=== PATIENT | female | born 1930 | race Caucasian/White ===

== ENCOUNTER 2017-01-24 12:11 | Inpatient (IN) | payer MEDICARE, OTHER ==
[~2017-01-24] VITALS: Ht 162.6 cm; Wt 66.8 kg
--- NOTE | ~2017-01-24 | ECH ---
Transthoracic Echocardiography Report (TTE) Demographics Patient Name HAIR STREETER Date of Study 01/25/2017 Patient Number [id number] Visit Number [id number] Date of 1930 Room Number 428 Accession Number [id number] Gender Female Age 86 year(s) Referring Rosenda Catalan MD Network Systems Engineer Amparo Dela Cruz [facility] Physician Juan Stephenson MD Physician Interpreting Seble Louise [employer] Journeyman Physician MD Supervising Ordering Physician Juan Ayers MD/P Nurse Stress Residential Manager Conclusions Summary Technically adequate exam. The estimated left ventricular ejection fraction is 60-65% in underlying atrial fibrillation. Aortic sclerosis without significant stenosis. Mildly dilated right ventricle with normal systolic function. The left atrium is severely dilated by LA volume index measurement. The right atrium is moderate to severely dilated. Mild-moderate tricuspid regurgitation by color Doppler. There is moderate pulmonary hypertension. The pulmonary pressure (RVSP) is 51 mmHg. The ascending aorta appears mildly dilated. The maximum diameter measures 3.6 cm. Procedure Type of Study TTE procedure:Echo Complete SF. Procedure Date Date: 01/25/2017 Start: 10:39 AM Technical Quality: Adequate visualization Indications:Congestive heart failure, Hypertension and Atrial fibrillation. Appropriate Use Criteria: 9 Height: 64 inches Weight: 149 pounds BSA: 1.73 m Rhythm: Atrial fibrillation HR: 68 bpm BP: 122/82 mmHg M-Mode/2D Measurements LV Diastolic Dimension: 4.31 cm LV Systolic Dimension: 3.84 cm LV Septum Diastolic: 0.9 cm LV PW Diastolic: 0.95 cm AO Root Dimension: 2.88 cm Cardiac Output: 4.17 l/min LA Dimension: 5.65 cm Cardiac Index: 2.41 l/min*m RV Diastolic Dimension: 3.4 cm LA volume index: 56 ml/m LVOT: 1.82 cm LVOT VTI: 23.57 cm RV Base: 4.6 cm LV Stroke volume: 61.29 ml RV Mid: 3.6 cm LV Stroke volume index: 35.43 ml/m RV Length: 7.1 cm TAPSE: 2.1 cm Doppler Measurements AV Peak Velocity: 1.6 m/s MV Peak E-Wave: 1.14 m/s AV Peak Gradient: 10.24 mmHg MV Peak A-Wave: 0.92 m/s AV Mean Gradient: 5.89 mmHg MV E/A Ratio: 1.23 LVOT Peak Velocity: 1.06 m/s MV P1/2t: 50.3 msec AV Area (Continuity):1.74 cm MV Deceleration Time: 173.5 msec TR Velocity:3.4 m/s MV Area (PHT): 4.37 cm TR Gradient:46.24 mmHg PV Peak Velocity: 0.89 m/s Estimated RAP:5 mmHg PV Peak Gradient: 3.15 mmHg Estimated RVSP: 51 mmHg Estimated PASP: 51.24 mmHg RA Area: 24.01 cm Findings Left Ventricle The left ventricle is normal in size . Diastolic function indeterminate due to patient's arrhythmia. Right Ventricle Mildly dilated right ventricle with normal systolic function. Left Atrium The left atrium is severely dilated by LA volume index measurement. Right Atrium The right atrium is moderate to severely dilated. Mitral Valve Mild mitral annular calcification. Mild mitral regurgitation by color Doppler. Aortic Valve The aortic valve is mildly sclerotic with a mean gradient of 5.9mmHg. There is no aortic regurgitation by color Doppler. Tricuspid Valve Normal appearing tricuspid valve. Mild-moderate tricuspid regurgitation by color Doppler. There is moderate pulmonary hypertension. The pulmonary pressure (RVSP) is 51 mmHg. Pulmonic Valve Normal pulmonic valve structure and function. Pericardial Effusion No evidence of pericardial effusion. Miscellaneous The ascending aorta appears mildly dilated. The maximum diameter measures 3.6 cm. Pleural Effusion No evidence of pleural effusion. Contractility Score LV regional wall motion:(0-Non visualized 1-Normal 2-Hypokinesis 3-Akinesis 4-Dyskinesis 5-Aneurysm) Signature
[~2017-01-24 12:11] MED LIST: CALTRATE-600 W600 MG PO; COREG DPS12.5 MG PO; DAILY MULTIPLE1 EAC1 PO; DULERA 200/58.8 GM IH; FEOSOL-DPS325 MG PO; FLEXERIL DPS5 MG PO; FLONASE 0.05% D16 GM NS; FORTICAL NASAL3.7 ML NS; HYDREA DPS500 MG PO; IMODIUM A-1 MG/7.5 M PO; LASIX DPS40 MG PO; LEVAQUIN DPS500 MG PO; MUCINEX600 MG PO; NORVASC5 MG PO; PEPCID DPS20 MG PO; PHAZYME180 MG PO; PLAVIX75 MG PO; PRILOSEC DPS20 MG PO; SENOKOT-S TABL1 EACH PO; SYNTHROID DP0.025 MG PO; TYLENOL EXTRA500 M1 PO; TYLENOL PM EX-1 EACH PO; VITAMIN B-12 SQ; VITAMIN B-12500 MCG PO; VITAMIN D31000 UNIT PO; [UNRECOGNIZED DRUG - OTHER] PO
--- NOTE | 2017-01-29 12:55 | HP ---
ADMIT: 01/24/2017 RM/LOC: 428 [facility] MR#: [id number] [address] [address] [address] [place] [address] History and Physical SEX: F AGE: 86 : 1930 DATE OF SERVICE: CHIEF COMPLAINT: Shortness of breath. HISTORY OF PRESENT ILLNESS: The patient is a very pleasant, 86-year-old, female. She has a past medical history of /essential thrombocytopenia/interstitial pulmonary fibrosis/chronic hypoxic respiratory failure, who presents to [facility] Emergency Room today with complaints of shortness of breath worsening over the last 3 days. Along with this, she has been dyspneic on exertion. She denies any chest pain. She does notice an increase in weight and increase in ankle swelling, thinks she has gained at least 3 to 4 pounds. She denies any nausea. No vomiting. No fevers or chills have been noted. No bowel or bladder complaints has been noted. She has been taking all of her medications as directed. In the emergency room, she was found to have increasing oxygen requirements, which she notes she has turned her oxygen up to over the last several days. Her chest x-ray is consistent with some pulmonary edema on top of her chronic pulmonary fibrosis, and she is admitted for further evaluation and treatment. Right now, the patient notes she does feel a little bit improved since arriving. PAST MEDICAL HISTORY: 1. History of rectal prolapse status post laparoscopic rectopexy in 2016. 2. Myelodysplastic syndrome. 3. Essential thrombocytopenia. 4. Anemia of iron deficiency. 5. Vitamin B12 deficiency. 6. Hypothyroidism. 7. Hypertension. 8. Chronic kidney disease. 9. Hyperlipidemia. 10.History of CVA. 11.History of peptic ulcer disease/gastrointestinal bleed. 12.Interstitial lung disease/IPF chronically on at least 3 L of oxygen, diagnosed in 2015. 13.History of prior esophagitis. 14.Status post cholecystectomy. 15.Status post prior bone marrow biopsy. 16.History of chronic diastolic heart failure. 17.Osteoporosis. 18.Dilation and curettage. HOME MEDICATIONS: Include: 1. Multivitamin. 2. Tylenol. 3. Miacalcin. 4. Phazyme. 5. Ferrous sulfate. 6. Norvasc. ADMIT: 01/24/2017 RM/LOC: 428 [facility] MR#: [id number] [address] [address] [address] [place] [address] History and Physical SEX: F AGE: 86 : 1930 7. Synthroid. 8. Lasix. 9. Flonase. 10.Allopurinol. 11.Senokot. 12.Tylenol. 13.Vitamin D. 14.Coreg. 15.Cyclobenzaprine. 16.Tums. 17.Vitamin B12. 18.Omeprazole. ALLERGIES: NONSTEROIDAL ANTI-INFLAMMATORY DRUGS WELL CODEINE. FAMILY HISTORY: Noncontributory. SOCIAL HISTORY: She has never been a smoker. She is retired, previously worked at [employer], lives independently. REVIEW OF SYSTEMS: Noted above. All other systems are reviewed and are negative. PHYSICAL EXAMINATION: VITAL SIGNS: 96.5, 73, 22, 155/76, she is saturating about 90% on 5 L by nasal cannula. GENERAL: This is an elderly female. She is in no apparent distress. She is awake. She is alert. She is oriented x3, cooperative with examiner. HEENT: Normocephalic and atraumatic. Mucous membranes are moist. NECK: Supple. LUNGS: She has rales really throughout all irby, little diminished at the bases. HEART: Regular. ABDOMEN: Soft, nontender, nondistended. Positive bowel sounds throughout. EXTREMITIES: Lower extremities, she has good pulses that are palpable, but she has edema in feet, ankles, calves really up to the knee, at least 2+. NEUROLOGIC: Her cranial nerves are intact. There are no focal deficits are noted. LABORATORY DATA: Her lab work shows a hemoglobin of 8.2, a white count of 16.8, and 308,000 platelets. Sodium 139, potassium 4.2, BUN is 29, and creatinine 1.1. Her bicarb is 29, AST 46, ALT 23, alkaline phosphatase 154, total bilirubin is a little elevated at 1.9. Her urinalysis really is within normal limits. Chest x-ray, bilateral interstitial infiltrates that appear much more prominent than her last chest film that was just done in September really very suspicious for pulmonary edema, question small right pleural effusion. I do not notice any alicia consolidations. Brain natriuretic peptide was 13,150. ADMIT: 01/24/2017 RM/LOC: 428 [facility] MR#: [id number] [address] [place] [id number] [address] [facility] [place] [address] History and Physical SEX: F AGE: 86 : 1930 ASSESSMENT AND PLAN: 1. Dyspnea. 2. Worsening/acute on chronic hypoxic respiratory failure. 3. History of diastolic heart failure. 4. Idiopathic pulmonary fibrosis/interstitial lung disease. 5. Leukocytosis/myelodysplastic syndrome with essential thrombocythemia. 6. Hypertension. 7. History of chronic kidney disease. At this time, I really believe this is mostly heart failure. I have covered her with a little bit of Levaquin just given the high risk of infection in people who do have myelodysplastic syndrome and then on top of that her interstitial lung disease, but I really do believe most of this is failure. Right now, she has been given some Lasix downstairs, and probably, we will actually re- dose her with a little bit later. I do not see an echo report for over a year and half. We will get her started on the remainder of her home medications and follow her closely as an inpatient. The patient is a DNR at this point. Armen Martinez MD/ katy JOB #: [id number] CC: Armen Martinez, Attending Physician Naa Dennison, Family Physician
[2017-01-31] MEDS ORDERED: PHAZYME180 MG PO (12:53)
[2017-01-31] MEDS ORDERED: ZYLOPRIM100 MG PO (12:54)
[2017-01-31] MEDS ORDERED: TUMS DPS500 MG PO (12:56)
[2017-01-31] MEDS ORDERED: MAG-OX400 MG PO (12:57)
[2017-01-31] MEDS ORDERED: CARDIZEM CD180 MG PO (12:58)
[2017-01-31] MEDS ORDERED: OCEAN NASAL MIS45 ML NS (12:59)
--- NOTE | 2017-02-05 17:41 | DS ---
ADMIT: 01/24/2017 RM/LOC: 428 [facility] MR#: [id number] [address] [address] [address] [place] [address] Discharge Summary SEX: F AGE: 86 : 1930 ADMISSION DATE: 01/24/2017 DISCHARGE DATE: 01/29/2017 DISCHARGE DIAGNOSES: 1. Acute on chronic diastolic heart failure. 2. New onset atrial fibrillation with rapid ventricular response, paroxysmal converted to sinus rhythm. 3. Myelodysplastic syndrome with significant anemia, status post packed red blood cell transfusion. 4. Interstitial lung disease. 5. Chronic hypoxic respiratory failure. 6. Hypertension. 7. Chronic kidney disease. CONSULTATIONS: Cardiology. PROCEDURES: None. REASON FOR ADMISSION: The patient is a very pleasant, 86-year-old female who presented to the [facility] emergency room on the day of admission with complaints of increased shortness of breath and dyspnea on exertion. She had noted some weight gain and she was admitted for further evaluation and treatment. For complete details, please see H and P dictated on the day of admission. HOSPITAL COURSE: At the time of admission, the patient was placed in a telemetry bed. She was clearly noted to be clinically in heart failure. She was given diuretics and she was monitored closely on telemetry. She diuresed well. She was then noted to go into atrial fibrillation with RVR and she was rate controlled with diltiazem. Cardiology consulted. She underwent an echocardiogram. This was overall thought to be paroxysmal in nature. She converted to sinus rhythm. She diuresed nicely with great improvement with good diuresis. Her edema greatly improved. She did well in sinus rhythm as well. She had no recurrences of atrial fibrillation. She was seen by PT and OT. She refused any home health care and did quite well. Refused home health care as she pretty much lives with her son. She was changed from IV diuretics ADMIT: 01/24/2017 RM/LOC: 428 [facility] MR#: [id number] [facility] [address] [address] [address] [place] [address] Discharge Summary SEX: F AGE: 86 : 1930 to oral diuretics. For her myelodysplastic syndrome she had been receiving blood every 4-6 weeks and her hemoglobin did drop to 6.9 during her hospitalization and she was transfused with 1 unit of packed red cells bringing her hemoglobin up to the high 8 range and patient felt much better. She ambulated and ate, did very well and was thought to be ready for discharge home on 01/29. Discharge diet is a 2 g sodium cardiac diet as tolerated. Discharge activity is as tolerated. Discharge medications are per discharge medication sheet. Her Lasix was increased to 40 mg daily. FOLLOWUP: She will follow up with [facility] as well as well as Naa Cazares both within the next 7-10 days. She will call us with any other questions or concerns. Armen Martinez MD/ kourtney JOB #: [id number] CC: Armen Martinez MD, Attending Physician Naa Benavidez APRN, Family Physician
--- NOTE | 2017-02-16 21:31 | ER ---
ADMIT: 01/24/2017 RM/LOC: 428 [facility] MR#: [id number] [address] [address] [address] [place] [address] Emergency Room Report SEX: F AGE: 86 : 1930 DATE: 01/24/2017 HISTORY OF PRESENT ILLNESS: An 86-year-old female, comes to the Emergency Department with several days worth of increasing shortness of breath. She has a moist sounding cough, but denies coughing anything up. Denies orthopnea or PND. Has had no pain anywhere. Just slowly increasing shortness of breath. She is normally on 3 L of oxygen at home, she is now up to 5 L to maintain her saturations in the 90s. PAST MEDICAL HISTORY: Significant for hypertension, lung disease which is apparently an interstitial fibrosis. She has chronic renal failure, myelodysplastic syndrome. SOCIAL HISTORY: Does not smoke or drink. PHYSICAL EXAMINATION: GENERAL: Reveals an elderly lady, who has mild amount of distress. She is alert and oriented. LUNGS: She has rhonchi bilaterally. Prolonged expirations and decreased air movement. CARDIOVASCULAR: Regular rate and rhythm. No murmurs or rubs. ABDOMEN: Soft. EXTREMITIES: Significant for bipedal edema, 1+ to 2. SKIN: Pallorous. LOW ALTITUDE AIR DEFENSE GUNNER: With no focal findings. LABORATORY AND X-RAY DATA: Chest x-ray shows interstitial changes and vascular congestion. White count is 16.8, hemoglobin 8.2. BUN 29. Glucose 106. UA is normal. DIAGNOSES: The patient is being admitted with exacerbation of congestive heart failure and pneumonia. Delmar Doll MD/ katy JOB #: [id number] CC: Armen Martinez MD, Attending Physician Naa Cazares APRN, Family Physician
--- NOTE | 2017-03-08 15:03 | CO ---
ADMIT: 01/24/2017 RM/LOC: 428 [facility] MR#: [id number] [address] [address] [address] [place] [address] Consultation SEX: F AGE: 86 : 1930 DATE OF CONSULTATION: 01/25/2017 ATTENDING PHYSICIAN: Armen Martinez CONSULTING PHYSICIAN: Albino Herzog MD REASON FOR CONSULTATION: New onset atrial fibrillation. HISTORY OF PRESENT ILLNESS: The patient is a pleasant 86-year-old female with no known history of coronary artery disease. She does have interstitial lung disease and is on chronic oxygen at home. She states she has noticed over the last three days, she has had increased oxygen requirements and shortness of breath with exertion, also lower extremity edema and weight gain of approximately 4 pounds. She weighs herself faithfully everyday. She does have some lower extremity edema off and on in the past. She denies any chest pain, tightness, or heaviness, or any palpitations. She was found to be in atrial fibrillation with rapid ventricular response upon admission to the emergency room. This is a new diagnosis for her. She denies any orthopnea or paroxysmal nocturnal dyspnea. She denies any palpitations, fainting, dizziness, or lightheadedness. SOCIAL HISTORY: She does not have a history of tobacco abuse. Does not use any alcohol. Does not have a history of drug use or abuse. She does use caffeine. She worked at the [employer] for 18 years and she is retired from there. She now lives with her son. She is twice, once 20 years ago and once 40 years ago. PAST MEDICAL HISTORY: 1. She has a history of a cholecystectomy and also surgery on a prolapsed bowel. 2. Interstitial lung disease. 3. Hypertension. 4. History of CVA x3 per her report. 5. Cataracts, which have been removed. 6. Corrective lenses. 7. GERD. 8. Hiatal hernia. 9. Hypothyroidism. 10.Myelodysplastic syndrome for which she follows with Oncology and gets a transfusion every month per her report. REVIEW OF SYSTEMS: GENERAL: Denies fatigue, fever, chills, sweats, or rash. She has had a weight gain of approximately 4 pounds in the last three days. EYES: Denies glaucoma. She wears corrective lenses and has had cataracts removed. ENT: Denies hearing loss or problems with nose, mouth or throat. PULMONARY: Denies cough, sputum production, asthma, or bronchitis. Denies snoring loudly. She has interstitial lung disease, wears chronic oxygen at home. She wakes up more than once at night and is tired first thing in the ADMIT: 01/24/2017 RM/LOC: 428 [facility] MR#: [id number] [address] [address] [address] [place] [address] Consultation SEX: F AGE: 86 : 1930 a.m. GASTROINTESTINAL: Denies difficulty swallowing. No change in bowel habits. Denies bloody stools. No history of liver disease. She has heartburn and acid reflux. She has been diagnosed with a hiatal hernia and thinks she has probably been diagnosed with a stomach ulcer in the past. She has dark stools and has a history of a cholecystectomy. GENITOURINARY: Denies dysuria, hematuria, nocturia, urinary tract infection, or kidney stones. Denies history of renal insufficiency or failure. MUSCULOSKELETAL: Denies history of arthritis or gout. Denies muscle or joint pains. ENDOCRINE: Denies history of diabetes. She has a history of hypothyroidism. HEMATOLOGIC: Denies history of anemia or easy bruising. She has a history of myelodysplastic syndrome. NEUROLOGIC: Denies chronic headaches, dizziness, syncope, seizures, or numbness or tingling. She has a history of CVA x3 in the past per her report. PSYCHIATRIC: Denies history of mental illness or feelings of depression. FAMILY HISTORY: Positive for heart disease in her mom, sudden cardiac at age 60. Dad in a car accident at age 64. Two brothers who had CVAs in the past. A son who of alcohol use. She has a sister who had cancer. MEDICATIONS: She is currently taking, include: 1. Coreg 25 mg p.o. b.i.d. 2. Iron 325 mg p.o. t.i.d. 3. Norvasc 5 mg p.o. daily. 4. Protonix 40 mg p.o. b.i.d. 5. Senokot. 6. Synthroid 0.025 p.o. daily. 7. Zyloprim 100 mg p.o. b.i.d. 8. DuoNeb. 9. She is also on a diltiazem drip. 10.Levaquin. ALLERGIES: SHE IS ALLERGIC TO NSAIDS, ANTI-INFLAMMATORIES, AND CODEINE. PHYSICAL EXAMINATION: Per Dr. Herzog: VITAL SIGNS: Temp 97.7, pulse 112, respirations 24, blood pressure 196/68, O2 saturation 92%. SKIN: [place], warm and dry. EYES: Sclerae clear. No xanthelasmas. ENT: Oral mucosa is pink and moist. No jugular venous distention or carotid bruits. CHEST: Respirations are even and unlabored. Lungs, crackles throughout. HEART: Irregularly irregular. ABDOMEN: Soft and nontender. MUSCULOSKELETAL: Gait is normal. EXTREMITIES: Peripheral pulses palpable. No clubbing, cyanosis or edema. PSYCHIATRIC: Alert and oriented. Mood and affect are appropriate. ADMIT: 01/24/2017 RM/LOC: 428 [facility] MR#: [id number] [address] [address] [address] [facility] [place] [address] Consultation SEX: F AGE: 86 : 1930 LABORATORY AND X-RAY DATA: Echocardiogram is pending. Chest x-ray shows cardiomegaly with mild interstitial edema, increasing opacities in right lung, cannot exclude pneumonia. Sodium of 137, potassium 4.3, chloride 99, carbon dioxide 28, BUN of 28, glucose 89, creatinine 1.1. AST 55, ALT of 22, Mag of 1.7. TSH of 6.770. Cardiac enzymes were negative. Blood cultures are no growth to date. White blood count of 28.7, red blood count of 2.49, hemoglobin of 8, hematocrit 26.7, and platelet count of 266. Lactic acid was 0.8. ASSESSMENT: Per Dr. Herzog: 1. New diagnosis of atrial fibrillation. 2. Acute diastolic heart failure. 3. Myelodysplastic syndrome. 4. Anemia. 5. Hypertension. 6. Interstitial lung disease. PLAN: Per Dr. Herzog: I agree with continuing to titrate her Cardizem drip and p.o. for rate control. At this time, I do not think that we can anticoagulate her secondary to her bleeding and myelodysplastic syndrome. She does have an elevated risk for CVA because of her history of a CVA and her new onset atrial fibrillation, but she understands the risks versus benefits. We will continue to monitor her symptoms and diagnostics, and amend our plan accordingly. Thank you for allowing us to participate in the care of this patient. JANICE Pham. Hossein Herzog MD / katy JOB #: [id number] CC: Armen Martinez, Attending Physician Naa Cazares APRN, Family Physician
[2017-04-29] MEDS ORDERED: PROVENTIL2.5 MG/3 M IH (14:59)
[2017-04-29] MEDS ORDERED: COZAAR DPS25 MG PO (15:02)
[2017-04-29] MEDS ORDERED: LASIX DPS40 MG PO (15:02)
[2017-04-29] MEDS ORDERED: DULERA 200/58.8 GM IH (15:04)
[2017-04-29] MEDS ORDERED: CEFTIN DPS500 MG PO (15:04)
[2017-06-17] MEDS ORDERED: OMEPRAZOLE20 M1 PO (12:48)
== END 2017-01-29 16:00 | disposition home or self-care (01) | DRG 291 ==
LOC: ER 12:11 → 4PCU 14:20
PROVIDERS: ADMIT Internal Medicine
PROC: 30233N1 Transfusion of Nonautologous Red Blood Cells into Peripheral Vein, Percutaneous Approach (ICD-10-PCS; principal; 2017-01-28)
DX: I13.0 Hypertensive heart and chronic kidney disease with heart failure and stage 1 through stage 4 chronic kidney disease, or unspecified chronic kidney disease (principal); I50.33 Acute on chronic diastolic (congestive) heart failure; J96.21 Acute and chronic respiratory failure with hypoxia; J18.9 Pneumonia, unspecified organism; D69.3 Immune thrombocytopenic purpura; J84.10 Pulmonary fibrosis, unspecified; Z99.81 Dependence on supplemental oxygen; I48.0 Paroxysmal atrial fibrillation; E83.42 Hypomagnesemia; D46.9 Myelodysplastic syndrome, unspecified; D64.9 Anemia, unspecified; K21.9 Gastro-esophageal reflux disease without esophagitis; N18.9 Chronic kidney disease, unspecified; M81.0 Age-related osteoporosis without current pathological fracture; D50.9 Iron deficiency anemia, unspecified; E53.8 Deficiency of other specified B group vitamins; E03.9 Hypothyroidism, unspecified; Z86.73 Personal history of transient ischemic attack (TIA), and cerebral infarction without residual deficits; Z87.11 Personal history of peptic ulcer disease; Z66 Do not resuscitate